=== PATIENT | male | born 1985 | race American Indian/Alaskan Native ===

== ENCOUNTER 2018-03-28 02:02 | Emergency (ER) | payer SELFPAY ==
[2018-03-28 03:30] LABS: Basophils # (Auto) 0.1 K/mm3 (0.0-0.1); Basophils % (Auto) 0.8 % (0.0-1.8); Eosinophils # (Auto) 0.5 K/mm3 (0.0-0.4); Eosinophils % (Auto) 4.9 % (0.0-4.3); Hematocrit 40.8 % (35.5-45.6); Hemoglobin 14.1 gm/dl (11.8-15.2); Lymphocytes % (Auto) 32.1 % (13.4-35.0); Mean Corpuscular HGB Conc 35 % (32-34); Mean Corpuscular Hemoglobin 31 pg (28-32); Mean Corpuscular Volume 90 fl (84-94); Monocytes % (Auto) 10.8 % (0.0-7.3); Platelet Count 279 K/mm3 (140-440); Red Blood Count 4.52 M/mm3 (3.65-5.03); Red Cell Distribution Width 13.2 % (13.2-15.2)
[2018-03-28 03:31] LABS: Amorphous Crystals,Urine 1+; Bilirubin,Urine NEG (Negative); Blood,Urine NEG (Negative); Color,Urine Yellow (Yellow); Mucus,Urine 2+ /HPF; Protein,Urine <15 mg/dL mg/dL (Negative)
[2018-03-28 03:42] LABS: Amphetamine Screen,Urine PRESUMPTIVE NEGATIVE; Cannabinoid Screen,Urine PRESUMPTIVE NEGATIVE; Methadone Screen,Urine PRESUMPTIVE NEGATIVE
[2018-03-28 03:50] LABS: BUN/Creatinine Ratio 14; Blood Urea Nitrogen 14 mg/dL (9-20); Calcium 9.3 mg/dL (8.4-10.2); Hemolysis Index 15
[2018-03-28 04:01] LABS: Benzodiazepines Screen,Urine PRESUMPTIVE POSITIVE; Cocaine Screen,Urine PRESUMPTIVE POSITIVE; Opiate Screen,Urine PRESUMPTIVE POSITIVE
--- NOTE | 2018-03-28 04:33 | Emergency Department Report ---
HPI - General Chief Complaint: Medical Clearance Time Seen by Provider: 03/28/18 03:54 - HPI HPI: 33-year-old male presents to the emergency department for medical clearance so he can go to the [place] [facility] for detox/rehabilitation from IV heroin use. The patient is from [facility]. He went to the [place] [facility] and was told to come to [facility] for medical clearance. The patient last used about 24 hours ago. He denies any withdrawal type symptoms or any other physical complaints. He denies any past medical history. ED Past Medical Hx - Past Medical History Previous Medical History?: No - Surgical History Past Surgical History?: Yes Additional Surgical History: Left Ear - Social History Smoking Status: Current Every Day Smoker Substance Use Type: Heroin - Medications Home Medications: Home Medications Medication Instructions Recorded Confirmed Last Taken Type No Known Home Medications [No 03/28/18 03/28/18 Unknown History Reported Home Medications] ED Review of Systems ROS: Stated complaint: MEDICAL CLEARANCE FOR DETOX Other details as noted in HPI Comment: All other systems reviewed and negative Constitutional: denies: chills, fever Eyes: denies: eye pain, eye discharge, vision change ENT: denies: ear pain, throat pain Respiratory: denies: cough, shortness of breath, wheezing Cardiovascular: denies: chest pain, palpitations Gastrointestinal: denies: abdominal pain, nausea, diarrhea Genitourinary: denies: urgency, dysuria Musculoskeletal: denies: back pain, joint swelling, arthralgia Skin: denies: rash, lesions Neurological: denies: headache, weakness, paresthesias Physical Exam - Physical Exam Vital Signs: Vital Signs 03/28/18 03/28/18 03/28/18 02:10 02:50 03:20 Temperature 98.1 F 98.1 F 97.7 F Pulse Rate 80 78 75 Respiratory 18 18 18 Rate Blood Pressure 135/91 127/88 Blood Pressure 135/91 [Left] O2 Sat by Pulse 98 100 99 Oximetry Physical Exam: GENERAL: The patient is well-developed well-nourished. HEENT: Normocephalic. Atraumatic. Patient has moist mucous membranes. EYES: Extraocular motions are intact. NECK: Supple. Trachea is midline. CHEST/LUNGS: Clear to auscultation. There is no respiratory distress noted. HEART/CARDIOVASCULAR: Regular. There is no tachycardia. There is no gallop rub or murmur. ABDOMEN: Abdomen is soft, nontender. Patient has normal bowel sounds. There is no abdominal distention. SKIN: Skin is warm and dry. NEURO: The patient is awake, alert, and oriented. The patient is cooperative. The patient has no focal neurologic deficits. The patient has normal speech and gait. MUSCULOSKELETAL: There is no tenderness or deformity. There is no limitation range of motion. There is no evidence of acute injury. ED Course Vital Signs 03/28/18 03/28/18 03/28/18 02:10 02:50 03:20 Temperature 98.1 F 98.1 F 97.7 F Pulse Rate 80 78 75 Respiratory 18 18 18 Rate Blood Pressure 135/91 127/88 Blood Pressure 135/91 [Left] O2 Sat by Pulse 98 100 99 Oximetry ED Medical Decision Making - Lab Data Result diagrams: 03/28/18 03:15 03/28/18 03:15 - Medical Decision Making The patient presented for a medical clearance so that he could go to a detox facility for a history of IV heroin abuse. Patient does not appear intoxicated. Labs were mostly unremarkable. Urine drug screen was positive for opiates, benzodiazepines and cocaine. Vital signs stable throughout his ED course. Negative blood alcohol level. No signs of infection. He appears medically cleared to go to the detox facility. Critical Care Time: No Critical care attestation.: If time is entered above; I have spent that time in minutes in the direct care of this critically ill patient, excluding procedure time. ED Disposition Clinical Impression: Admitted to substance misuse detoxification center, History of intravenous drug abuse Disposition: DC-01 TO HOME OR SELFCARE Is pt being admited?: No Condition: Stable Instructions: Narcotic Abuse (ED) Additional Instructions: You are medically cleared to go to your detox/rehabilitation center. Please return to the emergency department with any concerns or with any acute distress. Referrals: PRIMARY MD HILARIO [Primary Care Provider] - 3-5 Days Time of Disposition: 04:33
[2018-03-28 05:06] VITALS: BP 129/70
== END 2018-03-28 04:30 | disposition home or self-care (01) ==
LOC: ED 02:02
DX: F15.93 Other stimulant use, unspecified with withdrawal (principal); F17.200 Nicotine dependence, unspecified, uncomplicated; F19.10 Other psychoactive substance abuse, uncomplicated
CPT/HCPCS: 36415; 80048; 80307; 81001; 85025; 99283; G0480; 80320